=== PATIENT | female | born 1955 | race Caucasian/White ===

== ENCOUNTER 2016-10-31 17:10 | Emergency (ER) | payer OTHER ==
[~2016-10-31] VITALS: Ht 157.5 cm; Wt 78.4 kg
[~2016-10-31 17:10] MED LIST: ASPI-650 PO; BENA5TAB2 PO; CIPR500T4 PO; DOCU-159 PO; GLIM4TAB PO; HYDR-762 PO; METF-480 PO; METR500T PO; OMEP20CA16 PO; ONDA4TAB35 PO; SMV40T PO; TML25OP5 BOTH EYES
[2016-10-31 17:14] VITALS: Ht 157.5 cm; Wt 78.4 kg
--- NOTE | 2016-10-31 17:27 | EN ---
Date/Time of Note Date/Time of Note DATE: 10/31/16 TIME: 17:26 ER Progress Note Patient was seen in [facility] and examined. patient has diabetes on insulin and was sent here from her pcp due to dizziness and chills but also complains of cough, runny nose and congestion x 3 days. Patient will be further examined in ED2 DAMION MARCUS PA-C Oct 31, 2016 17:27
[2016-10-31] MEDS ORDERED: IBUPROFEN 600 MG TAB PO ONE (19:30)
[2016-10-31 19:52] LABS: URINE BLOOD (Dip) POC Negative (NEGATIVE)
--- NOTE | 2016-10-31 20:07 | RADRPT ---
PROCEDURE: CR, chest CLINICAL INDICATION: Cough. TECHNIQUE: AP chest. COMPARISON: Chest, 01/19/2013. FINDINGS: The heart is not enlarged. There is no acute infiltrate in the lungs. No pleural effusion. IMPRESSION: 1. Unremarkable chest x-ray. RPTAT: GG .Roel Yi MD, Date Time Electronically viewed and signed by .Roel Yi MD, on 10/31/2016 20:07 .Y/
[2016-10-31] MEDS ORDERED: IBUP-1542 PO (20:15)
[2016-10-31] MEDS ORDERED: OSLT75C PO (20:15)
[2016-10-31] MEDS ORDERED: CEPH-443 PO (20:15)
--- NOTE | 2016-10-31 20:17 | ERD ---
ER Documentation Chief Complaint Date/Time DATE: 10/31/16 TIME: 20:16 Chief Complaint flu x 3 days HPI This 61-year-old female presents with cough and body aches subjective fever for 3 days. She was sent by primary doctor for evaluation for dizziness. Denies chest pain, vomiting, abdominal pain, diarrhea. She denies urinary complaints. ROS All systems reviewed and are negative except as per history of present illness. Medications Home Meds Active Scripts Oseltamivir Phosphate* (Tamiflu*) 75 Mg Capsule, 75 MG PO BID for 5 Days, CAP Prov:MILAD CAMILO MD 10/31/16 Cephalexin* (Keflex*) 500 Mg Capsule, 500 MG PO QID for 5 Days, CAP Prov:MILAD CAMILO MD 10/31/16 Ibuprofen* (Motrin*) 600 Mg Tab, 600 MG PO Q6, #15 TAB Prov:MILAD CAMILO MD 10/31/16 Ondansetron Hcl* (Zofran* ODT) 4 mg -ODT Tab.disper, 4 MG PO Q6 Y for NAUSEA AND /OR VOMITING, #30 TAB Prov:TUYET COCHRAN MD 10/29/15 Hydrocodone Bit-Acetaminophen* ([place]*) 10-325 Mg Tablet, 1 TAB PO Q6 Y for PAIN , #7 TAB Prov:TUYET COCHRAN MD 10/29/15 Metronidazole* (Flagyl*) 500 Mg Tablet, 500 MG PO TID for 7 Days, TAB Prov:TUYET COCHRAN MD 10/29/15 Ciprofloxacin Hcl* (Ciprofloxacin Hcl*) 500 Mg Tablet, 500 MG PO BID for 7 Days , TAB Prov:TUYET COCHRAN MD 10/29/15 Reported Medications Timolol Maleate* (Timoptic*) 0.25%-5ml Opht, 1 DROP BOTH EYES, #1 EA 10/29/15 Metformin* (Glucophage*) 850 Mg Tablet, 850 MG PO TID, #90 TAB 10/29/15 Omeprazole* (Omeprazole*) 20 Mg Capsule.dr, 20 MG PO DAILY 08/20/12 Simvastatin (Simvastatin) 40 Mg Tablet, 40 MG PO HS 08/20/12 Glimepiride* (Glimepiride*) 4 Mg Tablet, 4 MG PO BID 08/20/12 Aspirin (Aspirin) 81 Mg Tablet, 81 MG PO DAILY 08/20/12 Docusate Sodium* (Docusate Sodium*) 100 Mg Capsule, 100 MG PO BID 08/20/12 Benazepril Hcl* (Benazepril Hcl*) 5 Mg Tablet, 5 MG PO DAILY 08/20/12 Allergies Allergies: Coded Allergies: No Known Allergy (Unverified , 10/10/12) PMhx/Soc History of Surgery: No Anesthesia Reaction: No Hx Cardiac Disorders: Yes (HYPERCHOLESTEROLEMIA, HTN) Hx Miscellaneous Medical Probl: Yes (iddm) Hx Alcohol Use: No Hx Substance Use: No Hx Tobacco Use: No Smoking Status: Never smoker Physical Exam Vitals Vital Signs Date Time Temp Pulse Resp B/P Pulse Ox O2 Delivery O2 Flow Rate FiO2 10/31/16 17:14 98.1 74 18 137/69 99 Physical Exam Const: [] Alert, [id number]. Head: Atraumatic Eyes: Normal Conjunctiva ENT: Normal External Ears, Nose and Mouth. Neck: Full range of motion..~ No meningismus. Resp: Clear to auscultation bilaterally Cardio: Regular rate and rhythm, no murmurs Abd: Soft, non tender, non distended. Normal bowel sounds Skin: No petechiae or rashes Back: No midline or flank tenderness Ext: No cyanosis, or edema Neur: Awake and alert Psych: Normal Mood and Affect Results 24 hrs Laboratory Tests Test 10/31/16 19:46 10/31/16 19:53 Bedside Glucose 220mg/dL Bedside Urine Blood Negative Bedside Urine Glucose (UA) 0.50% Bedside Urine Ketones (LAB) Negative Bedside Urine Leukocyte Esterase (L Trace Bedside Urine Nitrite (LAB) Negative Bedside Urine Protein (LAB) Negative Bedside Urine pH (LAB) 5.0 Current Medications Medications (Trade) Dose Ordered Sig/Daisha Route PRN Reason Start Time Stop Time Status Last Admin Dose Admin Ibuprofen (Motrin) 600 mg ONCE ONCE PO 10/31/16 19:30 10/31/16 19:31 DC 10/31/16 19:32 Cephalexin (Keflex) 500 mg ONCE ONCE PO 10/31/16 20:30 10/31/16 20:31 UNV Procedures/MDM Urine shows glucose and trace leukocytes without ketones, nitrites and hemoglobin. Chest X-ray 1V Interpreted by me: Soft Tissue: No acute abnormalities Bones: No acute abnormalities Mediastinum/Cardiac Silhouette/Lungs: [No acute abnormalities] impression- normal 1 view chest x-ray Accu-Chek was 220. Patient was given ibuprofen 600 mg by mouth. Patient presents with fever, cough and body aches suggestive of viral illness, possibly influenza. She does have signs of UTI although doubt is the cause of her symptoms but she will be treated for this. She will treated with Tamiflu, Keflex ibuprofen and instructions for clear fluids and rest at home. Patient is advised to follow- up with primary doctor this week or return to the ER for new or worsening symptoms. The patient was stable with no new complaints during the ER course. Clinically, there is no current evidence to suggest meningitis, sepsis, acute abdomen, pneumonia, acute coronary syndrome, pulmonary embolism, or any other emergent condition appearing to require further evaluation or hospitalization. The patient should certainly return for any new or worsening symptoms per the aftercare instructions. They should otherwise follow-up with her primary care doctor for reevaluation this week. Departure Diagnosis: Primary Impression: Upper respiratory infection URI type: unspecified URI Qualified Code: J06.9 - Upper respiratory tract infection, unspecified type Patient Instructions: Understanding Urinary Tract Infections (UTIs), Uri, Viral , No Abx (Adult) Additional Instructions: X RAY NORMAL. AZUCAR [place] . HAY POQUIOT INFECCION EN ORINA Y VAMAS A TRATAR BLANE probablamente un virus que dura 2-4 garcia. cheque otro tang el proximo eden para mas simptomas- vomito, dolor, dao, problemas con respirando, o con aaron doctor primario. MILAD CAMILO MD Oct 31, 2016 20:17
[2016-10-31] MEDS ORDERED: CEPHALEXIN 500 MG CAP PO ONE (20:30)
[2016-10-31 21:02] VITALS: BP 119/65; PULSE 69; RESP 18; TEMP 98
== END 2016-10-31 21:03 | disposition home or self-care (01) ==
LOC: E/R 17:10 → FTE 21:03
DX: J06.9 Acute upper respiratory infection, unspecified (principal); I10 Essential (primary) hypertension; E11.9 Type 2 diabetes mellitus without complications; Z79.82 Long term (current) use of aspirin; Z79.84 Long term (current) use of oral hypoglycemic drugs
CPT/HCPCS: 71010; 81003; 82962; Z7502; Z7610

== ENCOUNTER 2018-06-12 09:17 | Emergency (ER) | END 2018-06-12 11:50 | disposition home or self-care (01) ==

== ENCOUNTER 2018-06-19 05:56 | Observation (INO) | END 2018-06-20 19:38 | disposition home or self-care (01) ==

== ENCOUNTER 2018-08-27 16:47 | Emergency (ER) | END 2018-08-27 21:28 | disposition home or self-care (01) ==